=== PATIENT | male | born 1955 | race Caucasian/White ===

== ENCOUNTER 2022-01-24 16:34 | Inpatient (IN) | payer OTHER, MEDICARE ==
[~2022-01-24] VITALS: Ht 180.3 cm; Wt 108.2 kg
[2022-01-24] MEDS ORDERED: ATROPINE SULFATE 1MG/10ML SYR IV ONE (17:15)
[2022-01-24 17:16] LABS: BASOPHILS % 0.4 % (0.0-2.0); EOSINOPHILS % 0.5 % (0.0-5.0); HEMATOCRIT. 45.2 % (42.0-52.0); HEMOGLOBIN. 14.7 g/dL (14.0-18.0); LYMPHOCYTES % 19.3 % (20.0-50.0); MEAN CORPUSCULAR HEMOGLOBIN 28.3 pg (28.0-32.0); MEAN CORPUSCULAR VOLUME 87.1 fL (80.0-94.0); MEAN PLATELET VOLUME 7.8 fl (7.4-10.4); MONOCYTES % 6.6 % (2.0-8.0); NEUTROPHILS % 73.2 % (40.0-76.0); PLATELET 201 x1000/uL (130-400); RED BLOOD CELL COUNT 5.19 mill/uL (4.7-6.1)
[2022-01-24 17:21] LABS: CHLORIDE 113 mEq/L (98-107)
[2022-01-24 17:35] LABS: ETHANOL BLOOD < 10 mg/dL
[2022-01-24] MEDS ORDERED: ENOXAPARIN 100MG/ML SYR SUBCUT NR (20:00)
[2022-01-24] MEDS ORDERED: PIPERACILLIN/TAZ 3.375G PREMIX 50 ML IV NR (20:00)
[2022-01-24] MEDS ORDERED: SODIUM CHLORIDE 0.9% 1,000 ML IV ONE (20:00)
[2022-01-24] MEDS ORDERED: VANCOMYCIN 1G PREMIX 200 ML IV NR (20:00)
[2022-01-24 21:43] LABS: CLARITY URINE CLEAR (CLEAR); COLOR URINE YELLOW (YELLOW); KETONES URINE TRACE (NEGATIVE); LEUKOCYTE ESTERASE URINE NEGATIVE (NEGATIVE); NITRITE URINE NEGATIVE (NEGATIVE); OCCULT BLOOD URINE NEGATIVE (NEGATIVE); PROTEIN URINE NEGATIVE (NEGATIVE); SPECIFIC GRAVITY URINE 1.029 (1.005-1.030); UROBILINOGEN URINE 0.2 E.U./dL (0.2-1.0)
[2022-01-24 21:56] LABS: *AMPHETAMINES SCREEN URINE NEGATIVE (NEGATIVE); *BARBITURATES SCREEN URINE NEGATIVE (NEGATIVE); *BENZODIAZEPINES SCREEN URINE NEGATIVE (NEGATIVE); *COCAINE SCREEN URINE NEGATIVE (NEGATIVE); CANNABINOID URINE SCREEN NEGATIVE (NEGATIVE); METHADONE URINE SCREEN NEGATIVE (NEGATIVE); OPIATES URINE SCREEN NEGATIVE (NEGATIVE); PHENCYCLIDINE URINE SCREEN NEGATIVE (NEGATIVE)
[2022-01-25] VITALS (14 sets, daily range): BP systolic 118–175; BP diastolic 59–97
[2022-01-25] MEDS ORDERED: LORAZEPAM 0.5MG TABLET PO PRN (02:15)
[2022-01-25] MEDS ORDERED: ENOXAPARIN 40MG/0.4ML SYR SUBCUT SCH (02:15)
[2022-01-25] MEDS ORDERED: MAGNESIUM/ALUMINUM HYDROXIDE/SIMETHICONE 30ML UDC PO PRN (02:15)
[2022-01-25] MEDS ORDERED: IPRATROPIUM/ALBUTEROL 0.5-3(2.5)MG/3ML NEB HHN PRN (02:15)
[2022-01-25] MEDS ORDERED: DOCUSATE SODIUM 100MG CAPSULE PO PRN (02:15)
[2022-01-25] MEDS ORDERED: HYDROCODONE/ACETAMINOPHEN 5/325MG TABLET PO PRN (02:15)
[2022-01-25] MEDS ORDERED: CLONIDINE 0.1MG TABLET PO PRN (02:15)
[2022-01-25] MEDS ORDERED: GUAIFENESIN 200MG/10ML SUGAR FREE UDC PO PRN (02:15)
[2022-01-25] MEDS ORDERED: ONDANSETRON HCL 4MG/2ML INJ IV PRN (02:15)
[2022-01-25] MEDS ORDERED: ACETAMINOPHEN 325MG TABLET PO PRN ×2 (02:15)
[2022-01-25] MEDS ORDERED: NALOXONE HCL 0.4 MG/ML 1ML VIAL IV PRN (02:45)
[2022-01-25 02:53] LABS: BASOPHILS % 0.5 % (0.0-2.0); EOSINOPHILS % 1.6 % (0.0-5.0); HEMATOCRIT. 41.4 % (42.0-52.0); HEMOGLOBIN. 13.4 g/dL (14.0-18.0); LYMPHOCYTES % 25.2 % (20.0-50.0); MEAN CORPUSCULAR HEMOGLOBIN 27.9 pg (28.0-32.0); MEAN CORPUSCULAR VOLUME 86.1 fL (80.0-94.0); MEAN PLATELET VOLUME 7.8 fl (7.4-10.4); MONOCYTES % 7.4 % (2.0-8.0); NEUTROPHILS % 65.3 % (40.0-76.0); PLATELET 192 x1000/uL (130-400); RED BLOOD CELL COUNT 4.81 mill/uL (4.7-6.1); RED CELL DISTRIBUTION WIDTH 15.5 % (11.6-14.6)
[2022-01-25 02:58] LABS: CHLORIDE 117 mEq/L (98-107)
[2022-01-25 03:08] LABS: CREATINE KINASE 95 IU/L (39-308); HDL CHOLESTEROL 46 mg/dL (40-59); LDL CHOLESTEROL 120 mg/dL (5-100)
[2022-01-25] MEDS ORDERED: ENOXAPARIN 30MG/0.3ML SYR SUBCUT SCH (09:00)
[2022-01-25] MEDS ORDERED: LIDOCAINE HCL/PF 2% 20MG/ML 5 ML/VIAL ONE (10:50)
[2022-01-25] MEDS ORDERED: VERAPAMIL HCL 2.5 MG/1 ML 2ML VIAL IV ONE (10:50)
[2022-01-25] MEDS ORDERED: HEPARIN 1000 UNITS/ML 10ML ONE ×2 (10:51→11:37)
[2022-01-25] MEDS ORDERED: MIDAZOLAM HCL 2 MG/2 ML VIAL ONE (11:03)
[2022-01-25] MEDS ORDERED: IODIXANOL 320MG/ML 100 ML BOTTLE IV ONE ×2 (11:03→11:42)
[2022-01-25] MEDS ORDERED: FENTANYL CITRATE/PF 50MCG/ML 2ML VIAL ONE (11:04)
[2022-01-25] MEDS ORDERED: IOHEXOL-300 100 ML BOTTLE ONE (11:30)
[2022-01-25] MEDS ORDERED: ASPIRIN 325MG TABLET ONE (12:03)
[2022-01-25] MEDS ORDERED: CLOPIDOGREL 75MG TABLET ONE (12:03)
[2022-01-25] MEDS ORDERED: ATROPINE SULFATE 1MG/10ML SYR IV PRN (12:15)
[2022-01-25] MEDS: ATORVASTATIN CALCIUM 40MG TABLET PO SCH (20:42)
[2022-01-26] VITALS (12 sets, daily range): BP systolic 123–185; BP diastolic 67–87
[2022-01-26 06:09] LABS: BASOPHILS % 0.7 % (0.0-2.0); EOSINOPHILS % 2.4 % (0.0-5.0); HEMATOCRIT. 43.5 % (42.0-52.0); HEMOGLOBIN. 14.2 g/dL (14.0-18.0); LYMPHOCYTES % 20.2 % (20.0-50.0); MEAN CORPUSCULAR HEMOGLOBIN 27.9 pg (28.0-32.0); MEAN CORPUSCULAR VOLUME 85.4 fL (80.0-94.0); MEAN PLATELET VOLUME 8.2 fl (7.4-10.4); MONOCYTES % 8.8 % (2.0-8.0); NEUTROPHILS % 67.9 % (40.0-76.0); PLATELET 192 x1000/uL (130-400); RED BLOOD CELL COUNT 5.09 mill/uL (4.7-6.1); RED CELL DISTRIBUTION WIDTH 15.1 % (11.6-14.6)
[2022-01-26] MEDS ORDERED: ASPIRIN 325MG TABLET PO SCH (09:00)
[2022-01-26] MEDS: CLOPIDOGREL 75MG TABLET PO SCH (09:11)
[2022-01-26] MEDS: HYDRALAZINE 20MG/ML VIAL IV PRN (09:11)
[2022-01-26] MEDS: ASPIRIN 81MG TABLET PO SCH (09:13)
[2022-01-26] MEDS: ATORVASTATIN CALCIUM 40MG TABLET PO SCH (20:08)
[2022-01-27] VITALS (19 sets, daily range): BP systolic 98–178; BP diastolic 35–115
[2022-01-27 06:18] LABS: BASOPHILS % 0.6 % (0.0-2.0); EOSINOPHILS % 1.5 % (0.0-5.0); HEMOGLOBIN. 14.7 g/dL (14.0-18.0); LYMPHOCYTES % 15.9 % (20.0-50.0); MEAN CORPUSCULAR HEMOGLOBIN 27.7 pg (28.0-32.0); MEAN CORPUSCULAR VOLUME 84.5 fL (80.0-94.0); MEAN PLATELET VOLUME 8.2 fl (7.4-10.4); MONOCYTES % 9.3 % (2.0-8.0); NEUTROPHILS % 72.7 % (40.0-76.0); PLATELET 191 x1000/uL (130-400); RED BLOOD CELL COUNT 5.33 mill/uL (4.7-6.1); RED CELL DISTRIBUTION WIDTH 15.3 % (11.6-14.6)
[2022-01-27 06:26] LABS: CHLORIDE 111 mEq/L (98-107)
[2022-01-27] MEDS ORDERED: LIDOCAINE HCL 1% 20ML VIAL (Pyxis) INJ ONE (06:51)
[2022-01-27] MEDS ORDERED: CEFAZOLIN 1000MG PREMIX 50 ML IV ONE ×4 (06:51→14:45)
[2022-01-27] MEDS ORDERED: IODIXANOL 320MG/ML 100 ML BOTTLE IV ONE (06:52)
[2022-01-27] MEDS ORDERED: FENTANYL CITRATE/PF 50MCG/ML 2ML VIAL ONE ×3 (06:52→15:53)
[2022-01-27] MEDS ORDERED: MIDAZOLAM HCL 2 MG/2 ML VIAL ONE ×3 (06:52→15:53)
[2022-01-27] MEDS ORDERED: GENTAMICIN/NS IRRIGATION 500 ML IR ONE ×2 (07:07→14:22)
[2022-01-27] MEDS: ASPIRIN 81MG TABLET PO SCH (08:04)
[2022-01-27] MEDS: CLOPIDOGREL 75MG TABLET PO SCH (08:04)
[2022-01-27] MEDS ORDERED: LIDOCAINE HCL 1% 10 MG/ML 10ML VIAL ONE (14:22)
[2022-01-27] MEDS ORDERED: IOHEXOL-300 100 ML BOTTLE ONE (14:27)
[2022-01-27] MEDS ORDERED: ATROPINE SULFATE 1MG/10ML SYR ONE (15:14)
[2022-01-27] MEDS: CEFAZOLIN 1000MG PREMIX 50 ML IV SCH (18:24)
[2022-01-27] MEDS: ATORVASTATIN CALCIUM 40MG TABLET PO SCH (21:16)
[2022-01-27] MEDS: HYDRALAZINE 20MG/ML VIAL IV PRN (22:24)
[2022-01-28] VITALS (12 sets, daily range): BP systolic 135–177; BP diastolic 68–100
[2022-01-28] MEDS: CEFAZOLIN 1000MG PREMIX 50 ML IV SCH ×2 (02:19→08:49)
[2022-01-28] MEDS: CLOPIDOGREL 75MG TABLET PO SCH (08:49)
[2022-01-28] MEDS: ASPIRIN 81MG TABLET PO SCH (08:49)
[2022-01-28] MEDS ORDERED: AMLO-498 MT (11:14)
[2022-01-28] MEDS ORDERED: CLOP75TA15 PO (11:14)
[2022-01-28] MEDS ORDERED: LIP40 PO (11:14)
[2022-01-28] MEDS ORDERED: HYDR-4001 PO (11:14)
== END 2022-01-28 16:00 | disposition home or self-care (01) | DRG 244 ==
LOC: ER 16:34 → 5EST 23:14 → EDBEDREQTM 23:37 → EDBEDREQ 23:37 → ENRESERV 23:38
PROVIDERS: ADMIT Family Medicine Adult Medicine; ATTEND Family Medicine Adult Medicine
PROC: 027035Z Dilation of Coronary Artery, One Artery with Two Drug-eluting Intraluminal Devices, Percutaneous Approach (ICD-10-PCS; principal; 2022-01-25)
PROC: B211YZZ Fluoroscopy of Multiple Coronary Arteries using Other Contrast (ICD-10-PCS; 2022-01-25)
PROC: 4A023N7 Measurement of Cardiac Sampling and Pressure, Left Heart, Percutaneous Approach (ICD-10-PCS; 2022-01-25)
PROC: B54MZZA Ultrasonography of Right Upper Extremity Veins, Guidance (ICD-10-PCS; 2022-01-25)
PROC: 0JH606Z Insertion of Pacemaker, Dual Chamber into Chest Subcutaneous Tissue and Fascia, Open Approach (ICD-10-PCS; 2022-01-27)
PROC: 02HK3JZ Insertion of Pacemaker Lead into Right Ventricle, Percutaneous Approach (ICD-10-PCS; 2022-01-27)
PROC: 02H63JZ Insertion of Pacemaker Lead into Right Atrium, Percutaneous Approach (ICD-10-PCS; 2022-01-27)
DX: I44.30 Unspecified atrioventricular block (principal); I25.10 Atherosclerotic heart disease of native coronary artery without angina pectoris; I49.5 Sick sinus syndrome; I48.91 Unspecified atrial fibrillation; E78.5 Hyperlipidemia, unspecified; F17.210 Nicotine dependence, cigarettes, uncomplicated; I10 Essential (primary) hypertension; Z20.822 Contact with and (suspected) exposure to COVID-19; D72.829 Elevated white blood cell count, unspecified; I45.10 Unspecified right bundle-branch block; Z71.6 Tobacco abuse counseling; Z79.82 Long term (current) use of aspirin
CPT/HCPCS: 33208; 36415; 71045; 75820; 80048; 80053; 80061; 80305; 80320; 81003; 82550; 83605; 83735; 83880; 84443; 84484; 85025; 85347; 87426; 92928; 93005; 93306; 93458; 99291; C1769; C1785; C1874; C1887; C1893; C1898; J0360; J0461; J0690; J1644; J1650; J2250; J2543; J3010; J3370; J3490; Q9967; G0480